=== PATIENT | female | born 1970 | race African-American/Black ===

== ENCOUNTER → 2019-12-06 | Outpatient (CLI) | payer BC ==
[2015-01-22 10:40] VITALS: BP 123/72
[~2019-12-06] MED LIST: FERROUS SULFATE PO; HYDR-3164 PO; IBUPROFEN PO; LISI1TAB20 PO; LOVASTATIN PO; VITA-8 PO
--- NOTE | 2019-12-06 10:52 | KCIC ---
BILATERAL DIAGNOSTIC MAMMOGRAPHY AND RIGHT BREAST ULTRASOUND History: 1.5 cm mass upper outer right breast. Chronic breast lumps bilaterally. Comparison: Bilateral mammogram January 20, 2018 and dating back to 2012. Right breast ultrasound January 21 04/23/2018. Prior studies from [facility]. Technique: Bilateral digital mammogram views were obtained. Findings: Breast Tissue Density C : The breasts are heterogeneously dense, which may obscure small masses. Mass/masses in the right breast 9:00 position are smaller mammographically. There are no dominant masses, suspicious microcalcifications or architectural distortion. Real-time ultrasound imaging of the right breast is performed. There are 2 adjacent cysts in the 9:00 position 6 cm from the nipple that are significantly smaller than on prior study, each measuring on the order of 0.7 cm, previously up to 2.6 cm. There is a third simple cyst at the 9:00 position 5 cm from the nipple measuring 1 cm. There is no solid mass or architectural distortion. No abnormal axillary lymph nodes. IMPRESSION: 1. No mammographic evidence of malignancy. 2. Adjacent cysts in the 9:00 position 6 cm from the nipple are significantly smaller than on prior study. 3. Recommend routine mammogram screening. BI-RADS category 2: Benign findings. The images were reviewed with computer-aided detection. Patient information is entered into the reminder system with a target due date for the next screening mammogram. Mammography is the most sensitive method for finding small breast cancers, but it does not detect them all and is not a substitute for careful clinical examination. A negative mammogram does not negate a clinically suspicious finding and should not result in delay in biopsying a clinically suspicious abnormality. "Our facility is accredited by the [employer] Mammography Program." Electronically signed by: Segun Horowitz MD (12/06/2019 10:49 AM) [email or web address]
--- NOTE | 2019-12-06 12:23 | KCIC ---
PELVIS W/TV History: Enlarged uterus possibly deviated to the left Comparison: January 15, 2015 Findings: Multiple transabdominal sonographic images of the pelvis are submitted. Right ovary measured 3.9 x 2.8 cm with normal low resistance vascularity. Left ovary measured 4.3 x 3 x 2.5 cm with normal low resistance vascularity. Uterus is suboptimally visualized. Transvaginal ultrasound: Multiple transvaginal sonographic images of the pelvis are submitted. There is mild free fluid in the pelvis. There is retroversion of the uterus. Uterus measured 9.9 x 7.1 x 6 cm. Endometrium is thin about 0.3 cm. There is some relative heterogeneity of the more bulbous appearing uterine fundus although discrete mass not demonstrated. There are some nabothian cysts. Left ovary measured 3.9 x 2 x 2.7 cm. There is small cyst of the left ovary about 1.5 cm. Right ovary measured 3.7 x 2.6 x 2.8 cm with normal low resistance vascularity. There are a couple of follicles of the right ovary. Impression: 1. There is slightly heterogeneous appearance of more bulbous appearing uterine fundus although discrete mass not demonstrated. There is minimal free fluid in the pelvis. Electronically signed by: Godwin Rosado MD (12/06/2019 12:20 PM) [id number]
== END ==
LOC: KCIC MAMMO 08:19
PROVIDERS: ATTEND Family Medicine
DX: N60.01 Solitary cyst of right breast (principal); N83.202 Unspecified ovarian cyst, left side; N85.4 Malposition of uterus
CPT/HCPCS: 76641; 76830; 76856; 77066

== ENCOUNTER → 2020-12-18 | Outpatient (CLI) | payer BC ==
[2015-01-22 10:40] VITALS: BP 123/72
--- NOTE | 2020-12-18 09:39 | KCIC ---
EXAM: Bilateral digital screening mammogram with tomosynthesis. HISTORY: 50-year-old female presents for screening mammography. TECHNIQUE: Full-field digital craniocaudal and mediolateral oblique 2D and 3D tomosynthesis images of both breasts are obtained for evaluation. Computer aided detection was applied. COMPARISON: 11/05/2019, 01/22/2019, 01/20/2018 BREAST PARENCHYMAL DENSITY: Level C - Heterogeneously dense. FINDINGS: There is no new suspicious mass, microcalcification or region of architectural distortion. There are benign areas of asymmetry and nodularity within both breasts. IMPRESSION: BI-RADS Category 2: Benign finding(s). RECOMMENDATION: Annual mammography is recommended. If your mammogram demonstrates that you have dense breast tissue, which could hide abnormalities, and if you have other risk factors for breast cancer that have been identified, you might benefit from s upplemental screening tests that may be suggested by your ordering physician. Dense breast tissue, i n and of itself, is a relatively common condition. This information is not provided to cause undue c oncern, but rather to raise your awareness and to promote discussion with your physician regarding th e presence of other risk factors, in addition to dense breast tissue. A report of your mammography re sults will be sent to you and your physician. You should contact your physician if you have any ques tions or concerns regarding this report. Mammography is a sensitive method for finding small breast cancers, but it does not detect them all a nd is not a substitute for careful clinical examination. A negative mammogram does not negate a clin ically suspicious finding and should not result in delay in biopsying a clinically suspicious abnorma lity. PQRS compliance statement - Patient information was entered into a reminder system with a target due date for the next mammogram. "Our facility is accredited by the [employer] Mammography [employer]." Electronically signed by: Malena Gandhi MD (12/18/2020 9:37 AM) [id number]
== END ==
LOC: KCIC MAMMO 08:27
PROVIDERS: ATTEND Family Medicine
DX: Z12.31 Encounter for screening mammogram for malignant neoplasm of breast (principal)
CPT/HCPCS: 77063; 77067